=== PATIENT | female | born 1945 | race Caucasian/White ===

== ENCOUNTER 2018-04-27 13:26 | Observation (INO) ==
[2018-04-27] MEDS ORDERED: Morphine Inj 4 MG/ML Vial IV.PUSH ONE (13:52)
--- NOTE | 2018-04-27 13:56 | ED ---
HPI General Chief complaint: Abdominal Pain Stated complaint: Rib Pain Time Seen by Provider: 04/27/18 13:52 History of Present Illness HPI narrative: 73-year-old female presents via EMS for evaluation of rib injury. She reports that 5 days ago she was bit by a dog in the right upper arm and she fell and twisted her right knee in the process. She was seen at the [facility] and 4 days ago started on doxycycline. X-ray imaging of the right knee was obtained as an outpatient and reportedly she has a proximal tibia fracture. She was in the process of getting an outpatient CT and orthopedic follow-up and crutches scheduled. In fact she had an appointment today for outpatient CT however yesterday her son was helping her get into the shower and he wrapped his arms around her body in order to move her and she felt a crunching pain on left side of her rib cage. Symptoms worsened today and this is what prompted evaluation. Pain is sharp, inferior to the left breast, worse with movement and inspiration. She reports one episode of blood-tinged sputum while coughing as well. She denies abdominal pain, nausea or vomiting, neck pain or back pain , headache. She takes aspirin daily, she is not on any other blood thinning medications. Symptoms are moderate. No other complaints. Related Data Home Medications Medication Instructions Recorded Confirmed acetaminophen [Tylenol] 650 mg PO TID PRN 04/27/18 04/27/18 albuterol sulfate 2 - 4 puff INHALATION Q6H PRN 04/27/18 04/27/18 alum-mag hydroxide-simeth 10 ml PO DAILY PRN 04/27/18 04/27/18 budesonide-formoterol [Symbicort] 2 puff INHALATION Q12H 04/27/18 04/27/18 bupropion HCl 100 mg PO DAILY 04/27/18 04/27/18 citalopram 20 mg PO HS 04/27/18 04/27/18 diclofenac sodium 4 g TOPICAL TID PRN 04/27/18 04/27/18 gabapentin 400 mg PO TID 04/27/18 04/27/18 guaifenesin 200 mg PO QID PRN 04/27/18 04/27/18 ipratropium-albuterol 3 ml INHALATION QID PRN 04/27/18 04/27/18 ketoconazole 1 applic TOPICAL BID 04/27/18 04/27/18 levothyroxine 25 mcg PO DAILY 04/27/18 04/27/18 lidocaine-prilocaine 1 applicatio TOPICAL TID PRN 04/27/18 04/27/18 omeprazole 20 mg PO DAILY 04/27/18 04/27/18 tiotropium bromide [Spiriva with 1 cap INHALATION DAILY 04/27/18 04/27/18 HandiHaler] ursodiol 600 mg PO BID 04/27/18 04/27/18 Allergies Allergy/AdvReac Type Severity Reaction Status Date / Time cephalexin [From Keflex] Allergy Intermediate Itching Verified 04/27/18 13:42 erythromycin base Allergy Intermediate Hives Verified 04/27/18 13:42 [From Ilosone] Iodinated Contrast- Oral and Allergy Intermediate Hives Verified 04/27/18 13:42 IV Dye midazolam [From Versed] Allergy Intermediate Itching Verified 04/27/18 13:42 Penicillins Allergy Intermediate Respiratory Verified 04/27/18 13:42 Failure Sulfa (Sulfonamide Allergy Intermediate Hives Verified 04/27/18 13:42 Antibiotics) [facility] Medical History Medical History Asthma (Acute) Biliary cirrhosis (Acute) COPD (chronic obstructive pulmonary disease) (Acute) History of hysterectomy (Acute) Hypothyroidism (Acute) Surgical History Surgical History History of abdominal surgery (Acute) History of hip replacement (Acute) Social History Social History Substance History: No History of Abuse Second Hand Smoke Exposure: No Smoking Status: Former smoker Tobacco Type: Cigarettes How Often Do You Have a Drink Containing Alcohol: Never Recent Travel in [facility] within the Last 8 Weeks: No Recent Out of Country Travel within the Last 8 Weeks: No Exam Narrative Exam Narrative: GENERAL: Pleasant well-developed well-nourished female who appears uncomfortable on initial examination. SKIN: Warm and dry. Superficial dog bite on the posterior proximal right arm with some surrounding ecchymosis. No erythema HEAD: Atraumatic. Normocephalic. EYES: Pupils equal and round. No scleral icterus. No injection or drainage. ENT: No nasal bleeding or discharge. Mucous membranes pink and moist. NECK: Trachea midline. No JVD. CARDIOVASCULAR: Regular rate and rhythm. No murmur appreciated. RESPIRATORY: No accessory muscle use. Clear to auscultation. Breath sounds equal bilaterally. GASTROINTESTINAL: Abdomen soft, non-tender, nondistended. Hepatic and splenic margins not palpable. MUSCULOSKELETAL: No obvious deformities. Tender to palpation to the anterior and lateral left lower rib cage. No crepitus. No lower extremity edema. Right knee brace is in place. NEUROLOGICAL: Awake and alert. No obvious cranial nerve deficits. Motor grossly within normal limits. Normal speech. PSYCHIATRIC: Appropriate mood and affect; insight and judgment normal. Course Initial Documented Vital Signs Temperature 97.8 F 04/27/18 13:42 Pulse Rate 95 H 04/27/18 13:42 Respiratory Rate 20 04/27/18 13:42 Blood Pressure 135/70 04/27/18 13:42 Pulse Oximetry 99 04/27/18 13:42 Last Documented Vital Signs Temperature 97.8 F 04/27/18 13:42 Pulse Rate 95 H 04/27/18 13:42 Respiratory Rate 17 04/27/18 14:05 Blood Pressure 135/70 04/27/18 13:42 Pulse Oximetry 99 04/27/18 13:42 Medical Decision Making MDM Narrative Medical decision making narrative: The patient was given IV analgesics. Basic lab work was obtained. A rib x-ray was obtained revealing no acute ab normalities however the patient remains in persistent pain and therefore CT of the chest was obtained and there is no evidence of acute fracture or pneumothorax. At this point in time I discussed with the patient signed the possibility of discharge however the patient feels adamant that there is no that she will be ambulate with crutches or walker given her right knee injury and her left rib cage injury. Therefore she will be admitted for intractable pain. She was given Lidoderm patch, Percocet, incentive spirometer. Medical Screen Exam Complete: Yes Emergency Medical Condition: Yes Differential Diagnosis Differential Diagnosis: Rib fracture, contusion, pneumothorax, hemothorax Lab Data Result diagrams: 04/27/18 14:00 04/27/18 14:00 Lab Results 04/27/18 04/27/18 04/27/18 Range/Units 14:00 14:00 14:00 WBC 9.5 (4.0-11.0) th/mm3 RBC 3.72 L (4.00-5.30) mil/mm3 Hgb 12.1 (11.6-15.3) gm/dL Hct 35.3 (35.0-46.0) % MCV 94.9 (80.0-100.0) fL MCH 32.4 (27.0-34.0) pg MCHC 34.2 (32.0-36.0) % RDW 12.9 (11.6-17.2) % Plt Count 281 (150-450) th/mm3 MPV 7.6 (7.0-11.0) fL Neut % (Auto) 69.1 (16.0-70.0) % Lymph % (Auto) 17.5 (9.0-44.0) % [place] % (Auto) 9.4 H (0.0-8.0) % Eos % (Auto) 3.2 (0.0-4.0) % Baso % (Auto) 0.8 (0.0-2.0) % Neut # (Auto) 6.6 (1.8-7.7) th/mm3 Lymph # (Auto) 1.7 (1.0-4.8) th/mm3 [place] # (Auto) 0.9 (0.0-0.9) th/mm3 Eos # (Auto) 0.3 (0.0-0.4) th/mm3 Baso # (Auto) 0.1 (0.0-0.2) th/mm3 WBC Differential . Differential Comment Auto diff final PT 10.4 (9.8-11.6) sec INR 1.0 Ratio APTT 23.3 L (23.4-31.7) sec Sodium 141 (136-145) meq/L Potassium 4.5 (3.5-5.1) meq/L Chloride 106 (98-107) meq/L Carbon Dioxide 25.9 (21.0-32.0) meq/L Anion Gap 9 (5-15) meq/L BUN 20 H (7-18) mg/dL Creatinine 1.06 H (0.50-1.00) mg/dL Estimated GFR 51 L (>89) mL/min Random Glucose 171 H (74-106) mg/dL Calcium 8.4 L (8.5-10.1) mg/dL Imaging Data Radiologist's impression: Ribs X-Ray 04/27/18 13:52 CONCLUSION: 1. Healed left-sided rib fractures. 2. No acute displaced rib fracture or pneumothorax. Chest CT 04/27/18 15:19 CONCLUSION: Negative CT Chest non contrast. Discharge Plan Physicians Team ED Provider: Javi Pa ED Midlevel Provider: Mikey Howard Primary Care Provider: [facility] /Orders / Referrals /Forms Prescriptions: No Action acetaminophen [Tylenol] 325 mg Tablet 650 mg PO TID PRN (Reason: Pain and/or fever) RF: 0 ipratropium-albuterol 0.5 mg-3 mg(2.5 mg base)/3 mL Solution For Nebulization 3 ml INHALATION QID PRN (Reason: Shortness Of Breath) RF: 0 citalopram 40 mg Tablet 20 mg PO HS RF: 0 lidocaine-prilocaine 2.5-2.5 % Cream 1 applicatio Topical TID PRN (Reason: Pain) RF: 0 levothyroxine 25 mcg Tablet 25 mcg PO DAILY RF: 0 bupropion HCl 100 mg Tablet 100 mg PO DAILY RF: 0 ursodiol 300 mg Capsule 600 mg PO BID RF: 0 omeprazole 20 mg Capsule,Delayed Release(Dr/Ec) 20 mg PO DAILY RF: 0 albuterol sulfate 90 mcg/actuation Hfa Aerosol Inhaler 2 - 4 puff INHALATION Q6H PRN (Reason: Shortness Of Breath) RF: 0 ketoconazole 2 % Cream 1 applic TOPICAL BID RF: 0 alum-mag hydroxide-simeth 400-400-40 mg/5 mL Suspension 10 ml PO DAILY PRN (Reason: Indigestion) RF: 0 tiotropium bromide [Spiriva with HandiHaler] 18 mcg Capsule, W/Inhalation Device 1 cap INHALATION DAILY RF: 0 budesonide-formoterol [Symbicort] 160-4.5 mcg/actuation Hfa Aerosol Inhaler 2 puff INHALATION Q12H RF: 0 diclofenac sodium 1 % Gel 4 g TOPICAL TID PRN (Reason: Pain) RF: 0 gabapentin 400 mg Capsule 400 mg PO TID RF: 0 guaifenesin 100 mg/5 mL Liquid 200 mg PO QID PRN (Reason: Thin Mucous) RF: 0 Status ED Status: With Doctor
[2018-04-27 14:23] LABS: Baso # (Auto) 0.1 th/mm3 (0.0-0.2); Baso % (Auto) 0.8 % (0.0-2.0); Eos # (Auto) 0.3 th/mm3 (0.0-0.4); Eos % (Auto) 3.2 % (0.0-4.0); Hematocrit 35.3 % (35.0-46.0); Hemoglobin 12.1 gm/dL (11.6-15.3); Lymph # (Auto) 1.7 th/mm3 (1.0-4.8); Lymph % (Auto) 17.5 % (9.0-44.0); Mean Corpuscular HGB Conc 34.2 % (32.0-36.0); Mean Corpuscular Hemoglobin 32.4 pg (27.0-34.0); Mean Corpuscular Volume 94.9 fL (80.0-100.0); Mean Platelet Volume 7.6 fL (7.0-11.0); Mono # (Auto) 0.9 th/mm3 (0.0-0.9); Mono % (Auto) 9.4 % (0.0-8.0); Neut # (Auto) 6.6 th/mm3 (1.8-7.7); Neut % (Auto) 69.1 % (16.0-70.0); Platelet Count 281 th/mm3 (150-450); Red Blood Count 3.72 mil/mm3 (4.00-5.30); Red Cell Distribution Width 12.9 % (11.6-17.2); White Blood Count 9.5 th/mm3 (4.0-11.0)
[2018-04-27 14:39] LABS: Activated Partial Thrombo Time 23.3 sec (23.4-31.7); Calcium 8.4 mg/dL (8.5-10.1); Carbon Dioxide 25.9 meq/L (21.0-32.0); Potassium 4.5 meq/L (3.5-5.1); Prothrombin Time 10.4 sec (9.8-11.6)
--- NOTE | 2018-04-27 15:18 | XR ---
EXAM DATE: 04/27/2018 3:14 PM EST AGE/SEX: 73 years / Female INDICATIONS: Rib pain. CLINICAL DATA: This is the patient's initial encounter. Patient reports that signs and symptoms have been present for 4 - 6 days and indicates a pain score of 10/10. MEDICAL/SURGICAL HISTORY: . Patient was attacked by a pit bull Monday and suffered facial and b ites to her arm, a broken tibia and bruised tailbone and progressive rib pain. Patient history of [place] PD and osteoporosis. None. COMPARISON: . FINDINGS: There is no evidence of displaced fracture. Healed left-sided rib fractures. No destructive lesions o r areas of periosteal thickening are seen. Expiratory view of the chest is negative for pneumothorax . The mediastinal structures are midline. CONCLUSION: 1. Healed left-sided rib fractures. 2. No acute displaced rib fracture or pneumothorax. Electronically signed by: Bi Cuevas MD 04/27/2018 3:17 PM EST
--- NOTE | 2018-04-27 16:10 | CT ---
EXAM DATE: 04/27/2018 3:58 PM EST AGE/SEX: 73 years / Female INDICATIONS: Left side chest and rib pain after injury CLINICAL DATA: This is the patient's initial encounter. Patient reports that signs and symptoms have been present for 1 day and indicates a pain score of 6/10. MEDICAL/SURGICAL HISTORY: Chronic obstructive pulmonary disease. Cirrhosis. Hysterectomy. Abdomina l surgery, Hip replacement RADIATION DOSE: 7.60 CTDI (mGy) COMPARISON: No prior exams available for comparison. TECHNIQUE: Multiple contiguous axial images were obtained through the chest without contrast. Image s were obtained in suspended respiration using multiple row detector helical technique. Using automa jie exposure control and adjustment of the mA and/or kV according to patient size, radiation dose was kept as low as reasonably achievable to obtain optimal diagnostic quality images. DICOM format imag e data is available electronically for review and comparison. FINDINGS: Lungs: The lungs are symmetrically aerated. No infiltrates or nodular densities are seen. Mediastinum: There is good visualization of the great vessels of the middle mediastinum. No evidenc e of mediastinal or hilar adenopathy/mass. Pleurae: No evidence of focal thickening or pleural effusion. Axillae: Unremarkable. Bony Structures: Unremarkable. Miscellaneous: The examination was extended to include the upper abdomen, and both adrenal glands ar e normal in size and configuration. CONCLUSION: Negative CT Chest non contrast. Electronically signed by: Ollie Young MD 04/27/2018 4:08 PM EST
[2018-04-27] MEDS ORDERED: Lidocaine 5% Patch T-DERMAL ONE (16:38)
[2018-04-27] MEDS ORDERED: Bisacodyl 10 MG Supp RECTAL PRN (17:26)
[2018-04-27] MEDS ORDERED: Acetaminophen 325 MG Tablet PO PRN (17:26)
--- NOTE | 2018-04-27 17:58 | P.HP ---
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 Patient was seen at the [facility] and was started on doxycycline. X-ray of the right knee revealed a proximal tibia fracture. Patient was in the process of getting outpatient CT and orthopedic follow-up. Yesterday her son grabbed her around the chest to help move her in the bathroom when she felt a crunching followed by sharp pain over the left side of her rib cage just below her breast. Today she was going for the outpatient CT she pulled herself into the car and further injured her left side. Patient describes the pain is sharp stabbing spasm-like pain just below the left breast that is worse with movement and inspiration. She also had one episode of blood-tinged sputum with coughing while in the ED. Patient denies any fever or chills. She denies any anterior chest pain shortness of breath. She denies any nausea, vomiting or abdominal pain. Additionally she does complain of right knee pain and inability to bear weight on the right leg. In the ED, x-ray reveals healed left-sided rib fractures with no evidence of acute fracture. Follow-up chest CT is negative. Review of Systems All other systems reviewed negative except as stated in HPI PMFSH - History History Provided By: Patient - Medical History Medical History: Medical History (Last Reviewed 04/27/18 @ 17:42 by Sabrina Bell) Asthma Biliary cirrhosis CAD (coronary artery disease) COPD (chronic obstructive pulmonary disease) GERD (gastroesophageal reflux disease) History of CVA (cerebrovascular accident) History of MS (myocardial infarction) History of hysterectomy Hypothyroidism Osteoporosis - Surgical History Surgical History: Surgical History (Last Reviewed 04/27/18 @ 17:42 by Sabrina Bell) History of abdominal surgery History of hip replacement - Family History Family History: Family History (Last Updated 04/27/18 @ 17:43 by Sabrina Bell) Other Coronary artery disease - Social History I have reviewed the patient's Social History: Yes - Tobacco History Second Hand Smoke Exposure: No Tobacco Use In Past 30 Days: No Smoking Status: Former smoker Tobacco Type: Cigarettes - Alcohol History How Often Do You Have a Drink Containing Alcohol: Never - Substance Use History Substance History: No History of Abuse - Travel History Recent Travel in the [place] Within the Last 8 Weeks: No Recent Travel Out of the Country Within the Last 8 Weeks: No - Immunization History Tetanus Immunization: <5 Years Medications and Allergies Active Medications: Active Medications Acetaminophen (Tylenol) 650 mg PO Q4H PRN PRN Reason: Temp > 100.4 Hydrocodone Bitart/Acetaminophen (Pax 7.5/325) 1 tab PO Q6H PRN PRN Reason: PAIN SCALE 1 TO 10 Al Hydroxide/Mg Hydroxide (Milk Of Magnesia Liq) 30 ml PO Q12H PRN PRN Reason: Mild Constipation Bisacodyl (Dulcolax Supp) 10 mg RECTAL DAILY PRN PRN Reason: SEVERE CONSITIPATION Cyclobenzaprine HCl (Flexeril) 5 mg PO Q8H PRN PRN Reason: MUSCLE SPASM Lactulose (Lactulose Liq) 30 ml PO DAILY PRN PRN Reason: SEVERE CONSITIPATION Morphine Sulfate (Morphine Inj) 2 mg IV.PUSH Q3H PRN PRN Reason: BREAKTHROUGH PAIN Ondansetron HCl (Zofran Inj) 4 mg IV.PUSH Q6H PRN PRN Reason: NAUSEA OR VOMITING Patch Removal (Remove Old Patch) 1 each T-DERMAL HS LORI Senna/Docusate Sodium (Jennifer-Colace) 1 tab PO BID LORI Sennosides (Senokot) 17.2 mg PO Q12H PRN PRN Reason: Moderate Constipation Allergies Allergy/AdvReac Type Severity Reaction Status Date / Time cephalexin [From Keflex] Allergy Intermediate Itching Verified 04/27/18 13:42 erythromycin base Allergy Intermediate Hives Verified 04/27/18 13:42 [From Ilosone] Iodinated Contrast- Oral and Allergy Intermediate Hives Verified 04/27/18 13:42 IV Dye midazolam [From Versed] Allergy Intermediate Itching Verified 04/27/18 13:42 Penicillins Allergy Intermediate Respiratory Verified 04/27/18 13:42 Failure Sulfa (Sulfonamide Allergy Intermediate Hives Verified 04/27/18 13:42 Antibiotics) Home Medications Medication Instructions Recorded Confirmed Type acetaminophen [Tylenol] 650 mg PO TID PRN 04/27/18 04/27/18 History albuterol sulfate 2 - 4 puff INHALATION Q6H PRN 04/27/18 04/27/18 History alum-mag hydroxide-simeth 10 ml PO DAILY PRN 04/27/18 04/27/18 History budesonide-formoterol [Symbicort] 2 puff INHALATION Q12H 04/27/18 04/27/18 History bupropion HCl 100 mg PO DAILY 04/27/18 04/27/18 History citalopram 20 mg PO HS 04/27/18 04/27/18 History diclofenac sodium 4 g TOPICAL TID PRN 04/27/18 04/27/18 History gabapentin 400 mg PO TID 04/27/18 04/27/18 History guaifenesin 200 mg PO QID PRN 04/27/18 04/27/18 History ipratropium-albuterol 3 ml INHALATION QID PRN 04/27/18 04/27/18 History ketoconazole 1 applic TOPICAL BID 04/27/18 04/27/18 History levothyroxine 25 mcg PO DAILY 04/27/18 04/27/18 History lidocaine-prilocaine 1 applicatio TOPICAL TID PRN 04/27/18 04/27/18 History omeprazole 20 mg PO DAILY 04/27/18 04/27/18 History tiotropium bromide [Spiriva with 1 cap INHALATION DAILY 04/27/18 04/27/18 History HandiHaler] ursodiol 600 mg PO BID 04/27/18 04/27/18 History Exam Vital signs: Vital Signs 04/27/18 13:42 04/27/18 14:05 04/27/18 17:09 Temperature 97.8 F Pulse Rate 95 H 87 Respiratory Rate 20 17 24 Blood Pressure 135/70 167/79 H Pulse Oximetry 99 96 Intake & Output 04/26/18 04/27/18 04/27/18 18:59 06:59 18:59 Weight 160 kg Narrative: GENERAL: WDWN elderly female patient, in obvious discomfort from left- sided rib pain. Awake and alert. Son is at the bedside. SKIN: Warm and dry. +small healing bite gertrudis over right side of nose. + healing bite gertrudis with surrounding ecchymosis posterior aspect of the right arm above the elbow. HEAD: Atraumatic. Normocephalic. EYES: Pupils equal and round. No scleral icterus. No injection or drainage. ENT: No nasal bleeding or discharge. Mucous membranes pink and moist. NECK: Trachea midline. CARDIOVASCULAR: Regular rate and rhythm. RESPIRATORY: No accessory muscle use. Breath sounds equal bilaterally. Mild wheezing noted. GASTROINTESTINAL: Abdomen soft, non-tender, nondistended. Hepatic and splenic margins not palpable. MUSCULOSKELETAL: Extremities without clubbing, cyanosis, or edema. + Exquisite tenderness to palpation over left rib just below the breast. Right knee in brace. +diffuse tenderness to palpation over right knee. NEUROLOGICAL: Awake and alert. No obvious cranial nerve deficits. Motor grossly within normal limits. Five out of 5 muscle strength in the arms and legs. Normal speech. PSYCHIATRIC: Appropriate mood and affect; insight and judgment normal. Results - Labs CBC & Chem 7: 04/27/18 14:00 04/27/18 14:00 Labs: Laboratory Results - last 24 hr 04/27/18 04/27/18 04/27/18 14:00 14:00 14:00 WBC 9.5 RBC 3.72 L Hgb 12.1 Hct 35.3 MCV 94.9 MCH 32.4 MCHC 34.2 RDW 12.9 Plt Count 281 MPV 7.6 Neut % (Auto) 69.1 Lymph % (Auto) 17.5 [place] % (Auto) 9.4 H Eos % (Auto) 3.2 Baso % (Auto) 0.8 Neut # (Auto) 6.6 Lymph # (Auto) 1.7 [place] # (Auto) 0.9 Eos # (Auto) 0.3 Baso # (Auto) 0.1 WBC Differential . Differential Comment Auto diff final PT 10.4 INR 1.0 APTT 23.3 L Sodium 141 Potassium 4.5 Chloride 106 Carbon Dioxide 25.9 Anion Gap 9 BUN 20 H Creatinine 1.06 H Estimated GFR 51 L Random Glucose 171 H Calcium 8.4 L - Imaging Impressions Ribs X-Ray 04/27/18 13:52 CONCLUSION: 1. Healed left-sided rib fractures. 2. No acute displaced rib fracture or pneumothorax. Chest CT 04/27/18 15:19 CONCLUSION: Negative CT Chest non contrast. Caprini VTE Risk Assessment Caprini VTE Risk Assessment: Moderate/High Risk (score >= 2) Caprini Risk Assessment Model: Point Value = 1 Point Value = 2 Point Value = 3 Point Value = 5 Age 41-60 Minor surgery BMI > 25 kg/m2 Swollen legs Varicose veins or History of unexplained or recurrent spontaneous Oral contraceptives or hormone replacement Sepsis (< 1 month) Serious lung disease, including pneumonia (< 1 month) Abnormal pulmonary function Acute myocardial infarction Congestive heart failure (< 1 month) History of inflammatory bowel disease Medical patient at bed rest Age 61-74 Arthroscopic surgery Major open surgery (> 45 min) Laparoscopic surgery (> 45 min) Malignancy Confined to bed (> 72 hours) Immobilizing plaster cast Central venous access Age >= 75 History of VTE Family history of VTE Factor V Leiden Prothrombin 54063H Lupus anticoagulant Anticardiolipin antibodies Elevated serum homocysteine Heparin-induced thrombocytopenia Other congenital or acquired thrombophilia Stroke (< 1 month) Elective arthroplasty Hip, pelvis, or leg fracture Acute spinal cord injury (< 1 month) Prophylaxis Regimen: Total Risk Factor Score Risk Level Prophylaxis Regimen 0-1 Low Early ambulation 2 Moderate Order ONE of the following: *Sequential Compression Device (SCD) *Heparin 5000 units SQ BID 3-4 Higher Order ONE of the following medications: *Heparin 5000 units SQ TID *Enoxaparin/Lovenox 40 mg SQ daily (WT < 150 kg, CrCl > 30 mL/min) *Enoxaparin/Lovenox 30 mg SQ daily (WT < 150 kg, CrCl > 10-29 mL/min) *Enoxaparin/Lovenox 30 mg SQ BID (WT < 150 kg, CrCl > 30 mL/min) AND/OR *Sequential Compression Device (SCD) 5 or more Highest Order ONE of the following medications: *Heparin 5000 units SQ TID (Preferred with Epidurals) *Enoxaparin/Lovenox 40 mg SQ daily (WT < 150 kg, CrCl > 30 mL/min) *Enoxaparin/Lovenox 30 mg SQ daily (WT < 150 kg, CrCl > 10-29 mL/min) *Enoxaparin/Lovenox 30 mg SQ BID (WT < 150 kg, CrCl > 30 mL/min) AND *Sequential Compression Device (SCD) Assessment and Plan - Plan Intractable left sided rib pain, suspected muscle spasm No evidence of acute fracture on imaging -pain management with bowel regimen -Trial Lidoderm patch -Flexeril as needed -Monitor for improvement Episode of hemoptysis -Consult pulmonary medicine, appreciate assistance Right knee proximal tibia fracture per report -Obtain x-rays of the right knee -Consider orthopedic consultation -PT eval/tx Recent dog bite this past Monday [facility] No evidence of infection -Continue on doxycycline 100 mg twice daily (patient has penicillin allergy) -monitor ROSALIND on possible CKD No baseline labs for comparison Creatinine 1.06 -Avoid nephrotoxic agents -Repeat BMP in a.m. Liver cirrhosis secondary to Fosamax use -Avoid hepatotoxic agents -Monitor COPD, mild wheezing noted on exam -Scheduled DuoNeb -Supplemental oxygen -Monitor respiratory status CAD, history of remote MS x 3 Patient has no cardiac complaints -We will resume patient's home medications once med rec completed History of CVA x2, remotely Patient denies any residual weakness -Stable DVT prophylaxis -bilateral SCD/RAFIQ hose Code Status: FULL
[2018-04-27] MEDS ORDERED: Sod Chloride 0.9% Inj 1,000 ML IV.CONT SCH (18:00)
--- NOTE | 2018-04-27 18:14 | XR ---
EXAM DATE: 04/27/2018 6:08 PM EST AGE/SEX: 73 years / Female INDICATIONS: Right knee pain after twist and fall. CLINICAL DATA: This is the patient's initial encounter. Patient reports that signs and symptoms have been present for 4 - 6 days and indicates a pain score of 5/10. MEDICAL/SURGICAL HISTORY: None. None. COMPARISON: No prior exams available for comparison. FINDINGS: There is a questionable slightly downsloping but otherwise essentially nondisplaced fracture of the l ateral tibial plateau. Otherwise, bones of the right knee are intact. No subluxations. There is mild to moderate tricompartment osteoarthritis and a small joint effusion. CONCLUSION: Questionable nondisplaced lateral tibial plateau fracture. Mild to moderate osteoarthritis. Electronically signed by: Alonso Murray MD 04/27/2018 6:13 PM EST
[2018-04-27] MEDS: Senna/Docusate Sodium 8.6/50 MG Tablet PO SCH (20:47)
--- NOTE | 2018-04-27 22:00 | ECG ---
Date Performed: 04/27/2018 Time Performed: 13:48:20 PTAGE: 73 years EKG: Sinus rhythm NORMAL ECG NO PREVIOUS TRACING DOCTOR: Arias Salazar Interpretating Date/Time 04/27/2018 21:58:20
[2018-04-28] MEDS: Morphine Sulfate Inj 2 MG/ML Vial IV.PUSH PRN ×5 (01:01→23:54)
[2018-04-28 07:17] LABS: Baso # (Auto) 0.1 th/mm3 (0.0-0.2); Eos # (Auto) 0.3 th/mm3 (0.0-0.4); Hemoglobin 11.7 gm/dL (11.6-15.3); Lymph # (Auto) 2.6 th/mm3 (1.0-4.8); Lymph % (Auto) 36.8 % (9.0-44.0); Mean Corpuscular HGB Conc 33.5 % (32.0-36.0); Mean Corpuscular Hemoglobin 32.4 pg (27.0-34.0); Mean Corpuscular Volume 96.6 fL (80.0-100.0); Mean Platelet Volume 7.5 fL (7.0-11.0); Mono % (Auto) 13.9 % (0.0-8.0); Neut % (Auto) 43.3 % (16.0-70.0); Platelet Count 257 th/mm3 (150-450); Red Blood Count 3.62 mil/mm3 (4.00-5.30)
[2018-04-28 07:27] LABS: Alanine Aminotransferase 27 U/L (10-53); Albumin 2.8 g/dL (3.4-5.0); Anion Gap 8 meq/L (5-15); Aspartate Aminotransferase 21 U/L (15-37); Blood Urea Nitrogen 22 mg/dL (7-18); Calcium 8.4 mg/dL (8.5-10.1); Carbon Dioxide 27.2 meq/L (21.0-32.0); Chloride 105 meq/L (98-107); Glomerular Filtration Rate 60 mL/min (>89); Glucose,Random 91 mg/dL (74-106); Potassium 4.5 meq/L (3.5-5.1); Sodium 140 meq/L (136-145)
[2018-04-28 07:30] LABS: Alkaline Phosphatase 113 U/L (45-117); Total Protein 6.5 g/dL (6.4-8.2)
[2018-04-28] MEDS: Senna/Docusate Sodium 8.6/50 MG Tablet PO SCH ×2 (08:53→20:55)
[2018-04-28] MEDS: Lidocaine 5% Patch T-DERMAL SCH (08:53)
--- NOTE | 2018-04-28 09:04 | P.PNIM ---
Subjective Interval history: still having pain in left side of chest on breathing. Pain is sharp and feels like a 'pop' when breathing. breathing improved, no wheezing currently. unable to bear weight on right leg. Physical Exam Vital signs: Last Vital Signs Temp 97.7 F 04/28/18 00:00 Pulse 75 04/28/18 07:38 Resp 18 04/28/18 07:38 BP 126/73 04/28/18 00:00 Pulse Ox 93 L 04/28/18 07:38 Intake & Output 04/26/18 04/27/18 04/28/18 04/29/18 06:59 06:59 06:59 06:59 Weight 160 kg Narrative: GENERAL:uncomfortable due to left-sided rib pain. Awake and alert. SKIN: Warm and dry. +small healing bite gertrudis over right side of nose. + healing bite gertrudis with surrounding ecchymosis posterior aspect of the right arm above the elbow. HEAD: Atraumatic. Normocephalic. EYES: Pupils equal and round. No scleral icterus. No injection or drainage. ENT: No nasal bleeding or discharge. Mucous membranes pink and moist. NECK:no JVD CARDIOVASCULAR: Regular rate and rhythm. S1S2 heard, no murmurs. RESPIRATORY: No accessory muscle use. Breath sounds equal bilaterally. no rales or wheezes. GASTROINTESTINAL: Abdomen soft, non-tender, nondistended. no masses or organomegaly. MUSCULOSKELETAL: Extremities without clubbing, cyanosis, or edema. + Exquisite tenderness to palpation over left rib just below the breast. Right knee in brace. +diffuse tenderness to palpation over right knee. NEUROLOGICAL: Awake and alert. No obvious cranial nerve deficits. Motor grossly within normal limits. Five out of 5 muscle strength in the arms and legs. Normal speech. PSYCHIATRIC: Appropriate mood and affect; insight and judgment normal. Results Labs CBC & Chem 7: 04/28/18 05:56 04/28/18 05:56 Imaging Imaging: Impressions Knee X-Ray 04/27/18 00:00 CONCLUSION: Questionable nondisplaced lateral tibial plateau fracture. Mild to moderate osteoarthritis. Ribs X-Ray 04/27/18 13:52 CONCLUSION: 1. Healed left-sided rib fractures. 2. No acute displaced rib fracture or pneumothorax. Chest CT 04/27/18 15:19 CONCLUSION: Negative CT Chest non contrast. Assessment and Plan Plan Acute problems: Intractable left sided rib pain, suspected muscle spasm No evidence of acute fracture on imaging -pain management with bowel regimen, Lidoderm patch, Flexeril as needed Episode of hemoptysis - pulmonary medicine consult placed overnight, will follow recs. Right knee proximal tibia fracture per report -x-rays of the right knee--questionable fracture of tibial plateau--obtain CT RLE for further evaluation, if # present, then will consult orth for further mx currently has a knee brace. NWB RLE for now. -PT eval/tx Recent pit bull dog bite this past Monday--dog apparently was up to date with vaccination according to patient's son. No evidence of infection. Patient has been on doxycycline 100 mg twice daily ( patient has penicillin allergy) [facility] same. ROSALIND on possible CKD No baseline labs for comparison Creatinine 1.06--->0.91. cont gentle hydration, monitor closely. -Avoid nephrotoxic agents Stable chronic conditions: Liver cirrhosis secondary to Fosamax use -Avoid hepatotoxic agents -Monitor COPD, mild wheezing noted on exam -Scheduled DuoNeb -Supplemental oxygen -Monitor respiratory status CAD, history of remote CT x 3 Patient has no cardiac complaints -cont patient's home medications once med rec completed History of CVA x2, remotely Patient denies any residual weakness DVT prophylaxis -bilateral SCD/RAFIQ hose Progress Note: Quality VTE Deep Vein Thrombosis/Pulmonary Embolism Present on Admission: No
--- NOTE | 2018-04-28 11:35 | CT ---
EXAM DATE: 04/28/2018 11:27 AM EST AGE/SEX: 73 years / Female INDICATIONS: Abnormal xray. CLINICAL DATA: This is the patient's initial encounter. Patient reports that signs and symptoms have been present for 1 day and indicates a pain score of 7/10. MEDICAL/SURGICAL HISTORY: Hypothyroidism. Osteoporosis. Stroke. Hysterectomy. RADIATION DOSE: 7.29 CTDI (mGy) COMPARISON: [facility], KNEE COMPLETE RIGHT 4V, 04/27/2018. . TECHNIQUE: Multiple contiguous axial images were acquired using a multirow detector CT scanner witho ut contrast. Multiplanar reconstruction was performed in the sagittal and coronal planes. Using aut omated exposure control and adjustment of the mA and/or kV according to patient size, radiation dose was kept as low as reasonably achievable to obtain optimal diagnostic quality images. DICOM format i mage data is available electronically for review and comparison. FINDINGS: There is a knee joint effusion identified. There is no evidence for lipohemarthrosis. There is very s light cortical step-off of the lateral tibial plateau with a lucency seen. This corresponds to a nond isplaced fracture of the lateral tibial plateau, corresponding to the plain radiographic findings. Th ere is spurring of the tibial spines and moderate narrowing of the medial tibiofemoral compartment wi th subchondral sclerosis and marginal osteophyte formation. CONCLUSION: 1. Lateral tibial plateau fracture. 2. Osteoarthritis. Electronically signed by: Judson Zaman MD 04/28/2018 11:34 AM EST
--- NOTE | 2018-04-28 16:41 | ECG ---
Date Performed: 04/28/2018 Time Performed: 14:00:26 PTAGE: 73 years EKG: Sinus rhythm NORMAL ECG No significant change from prior electrocardiogram. PREVIOUS TRACING : 04/27/2018 13.48 DOCTOR: Arias Salazar Interpretating Date/Time 04/28/2018 16:41:06
--- NOTE | 2018-04-28 16:53 | P.CONOP ---
[facility] Orthopedics Consult Note - [facility] Consult date: 04/28/18 Consult reason: fracture Chief complaint: intractable Pain, rib contusion, Narrative: 73-year-old female with a past medical history significant for coronary artery disease status post PR x3 in the remote past, history of CVA x2 in the remote past, COPD on supplemental oxygen at home, history of liver cirrhosis secondary to Fosamax use, hypothyroidism and GERD who was bit by her neighbors dog on Monday causing her to fall and twist on her right knee. Patient was seen at the [facility] and was started on doxycycline. X-ray of the right knee revealed a proximal tibia fracture. Patient was in the process of getting outpatient CT and orthopedic follow-up. Yesterday her son grabbed her around the chest to help move her in the bathroom when she felt a crunching followed by sharp pain over the left side of her rib cage just below her breast. Today she was going for the outpatient CT she pulled herself into the car and further injured her left side. She also had one episode of blood-tinged sputum with coughing while in the ED. Patient denies any fever or chills. She denies any nausea, vomiting or abdominal pain. Additionally she does complain of right knee pain and inability to bear weight on the right leg. Review of Systems Denies fevers, chills, nausea, vomiting. Denies chest pain, cough, shortness of breath. Does complain of some left-sided rib discomfort. Denies abdominal pain or change in urination. Denies back pain, weakness, numbness or tingling. Denies dizziness, blurry vision or throat pain. Reports right knee pain PMFSH - History History Provided By: Patient - Medical History Medical History: Medical History (Last Reviewed 04/28/18 @ 10:03 by Tabitha Matias) Asthma Biliary cirrhosis CAD (coronary artery disease) COPD (chronic obstructive pulmonary disease) GERD (gastroesophageal reflux disease) History of CVA (cerebrovascular accident) History of PR (myocardial infarction) History of hysterectomy Hypothyroidism Osteoporosis - Surgical History Surgical History: Surgical History (Last Reviewed 04/28/18 @ 10:03 by Tabitha Matias) History of abdominal surgery History of hip replacement - Family History Family History: Family History (Last Updated 04/27/18 @ 17:43 by Sabrina Bell) Other Coronary artery disease - Tobacco History Second Hand Smoke Exposure: No Tobacco Use In Past 30 Days: No Smoking Status: Former smoker Tobacco Type: Cigarettes - Alcohol History How Often Do You Have a Drink Containing Alcohol: Never - Substance Use History Substance History: No History of Abuse - Travel History Recent Travel in the [place] Within the Last 8 Weeks: No Recent Travel Out of the Country Within the Last 8 Weeks: No - Immunization History Tetanus Immunization: <5 Years Medications and Allergies Active Medications: Active Medications Acetaminophen (Tylenol) 650 mg PO Q4H PRN PRN Reason: Temp > 100.4 Hydrocodone Bitart/Acetaminophen ([place] 7.5/325) 1 tab PO Q6H PRN PRN Reason: PAIN SCALE 1 TO 10 Last Admin: 04/27/18 21:04 Dose: 1 tab Al Hydroxide/Mg Hydroxide (Milk Of Magnesia Liq) 30 ml PO Q12H PRN PRN Reason: Mild Constipation Albuterol (Duoneb Neb (Formerly [facility])) 1 ampul NEB Q6HR WHILE AWAKE NEB [facility] Last Admin: 04/28/18 14:23 Dose: 1 ampul Bisacodyl (Dulcolax Supp) 10 mg RECTAL DAILY PRN PRN Reason: SEVERE CONSITIPATION Cyclobenzaprine HCl (Flexeril) 5 mg PO Q8H PRN PRN Reason: MUSCLE SPASM Doxycycline Hyclate (Vibramycin) 100 mg PO Q12HR [facility] Last Admin: 04/28/18 08:53 Dose: 100 mg Sodium Chloride (Ns Inj) 1,000 mls @ 42 mls/hr IV.CONT .[id number] [facility] Stop: 04/28/18 17:48 Last Admin: 04/27/18 19:03 Dose: 42 mls/hr Lactulose (Lactulose Liq) 30 ml PO DAILY PRN PRN Reason: SEVERE CONSITIPATION Lidocaine HCl (Lidoderm 5% Patch.12 Hr) 1 patch T-DERMAL DAILY [facility] Last Admin: 04/28/18 08:53 Dose: 1 patch Morphine Sulfate (Morphine Inj) 2 mg IV.PUSH Q3H PRN PRN Reason: BREAKTHROUGH PAIN Last Admin: 04/28/18 08:02 Dose: 2 mg Ondansetron HCl (Zofran Inj) 4 mg IV.PUSH Q6H PRN PRN Reason: NAUSEA OR VOMITING Last Admin: 04/28/18 10:20 Dose: 4 mg Patch Removal (Remove Old Patch) 1 each T-DERMAL HS [facility] Last Admin: 04/27/18 20:49 Dose: 1 each Patch Removal (Remove Old Patch) 1 each T-DERMAL HS [facility] Last Admin: 04/27/18 20:49 Dose: 1 each Senna/Docusate Sodium (Jennifer-Colace) 1 tab PO BID [facility] Last Admin: 04/28/18 08:53 Dose: 1 tab Sennosides (Senokot) 17.2 mg PO Q12H PRN PRN Reason: Moderate Constipation Allergies Allergy/AdvReac Type Severity Reaction Status Date / Time cephalexin [From Keflex] Allergy Intermediate Itching Verified 04/27/18 13:42 erythromycin base Allergy Intermediate Hives Verified 04/27/18 13:42 [From Ilosone] Iodinated Contrast- Oral and Allergy Intermediate Hives Verified 04/27/18 13:42 IV Dye midazolam [From Versed] Allergy Intermediate Itching Verified 04/27/18 13:42 Penicillins Allergy Intermediate Respiratory Verified 04/27/18 13:42 Failure Sulfa (Sulfonamide Allergy Intermediate Hives Verified 04/27/18 13:42 Antibiotics) levofloxacin [From Levaquin] Allergy Hallucinati Verified 04/27/18 18:22 ons Home Medications Medication Instructions Recorded Confirmed Type acetaminophen [Tylenol] 650 mg PO TID PRN 04/27/18 04/27/18 History albuterol sulfate 2 - 4 puff INHALATION Q6H PRN 04/27/18 04/27/18 History alum-mag hydroxide-simeth 10 ml PO DAILY PRN 04/27/18 04/27/18 History budesonide-formoterol [Symbicort] 2 puff INHALATION Q12H 04/27/18 04/27/18 History bupropion HCl 100 mg PO DAILY 04/27/18 04/27/18 History citalopram 20 mg PO HS 04/27/18 04/27/18 History diclofenac sodium 4 g TOPICAL TID PRN 04/27/18 04/27/18 History gabapentin 400 mg PO TID 04/27/18 04/27/18 History guaifenesin 200 mg PO QID PRN 04/27/18 04/27/18 History ipratropium-albuterol 3 ml INHALATION QID PRN 04/27/18 04/27/18 History ketoconazole 1 applic TOPICAL BID 04/27/18 04/27/18 History levothyroxine 25 mcg PO DAILY 04/27/18 04/27/18 History lidocaine-prilocaine 1 applicatio TOPICAL TID PRN 04/27/18 04/27/18 History omeprazole 20 mg PO DAILY 04/27/18 04/27/18 History tiotropium bromide [Spiriva with 1 cap INHALATION DAILY 04/27/18 04/27/18 History HandiHaler] ursodiol 600 mg PO BID 04/27/18 04/27/18 History Exam Vital signs: Vital Signs 04/27/18 17:09 04/27/18 19:32 04/27/18 19:50 Temperature 98.1 F Pulse Rate 87 87 79 Respiratory Rate 24 24 18 Blood Pressure 167/79 H 129/72 Pulse Oximetry 96 98 04/27/18 20:00 04/27/18 22:37 04/27/18 23:30 Temperature 98.7 F Pulse Rate 75 71 Respiratory Rate 18 18 Blood Pressure 120/67 Pulse Oximetry 96 98 04/28/18 00:00 04/28/18 04:00 04/28/18 07:38 Temperature 97.7 F Pulse Rate 68 63 75 Respiratory Rate 18 18 Blood Pressure 126/73 Pulse Oximetry 97 93 L 04/28/18 08:00 04/28/18 08:04 04/28/18 12:00 Temperature 98.3 F 98.1 F Pulse Rate 75 77 Respiratory Rate 22 18 20 Blood Pressure 121/69 122/64 Pulse Oximetry 98 98 04/28/18 14:28 Temperature Pulse Rate 76 Respiratory Rate 18 Blood Pressure Pulse Oximetry Intake & Output 04/27/18 04/28/18 04/28/18 18:59 06:59 18:59 Weight 160 kg Other: Weight On Admission 160 kg Narrative: Awake, alert, no acute distress Normocephalic Pupils equal No JVD Moist mucous membranes Nonlabored respirations Soft nontender abdomen Regular rate Right upper extremity: No tenderness to palpation or visible deformities. Patient does have visible dog bites over arm which appear well healing without gross signs of infection. Full active range of motion and strength throughout. Sensation intact. Brisk cap refill. Left upper extremity:No tenderness to palpation or visible deformities. Full active range of motion and strength throughout. Sensation intact. Brisk cap refill. Right lower extremity: Mild tenderness palpation and swelling about the proximal lateral aspect of the tibia. Unable to assess hip and knee range of motion due to knee pain. Patient demonstrates positive EHL and FHL. Sensation intact. Brisk cap refill. Left lower extremity:No tenderness to palpation or visible deformities. Full active range of motion and strength throughout. Sensation intact. Brisk cap refill. No rash Normal affect Results - Labs Result Diagrams: 04/28/18 05:56 04/28/18 05:56 Labs: Laboratory Results - last 24 hr 04/28/18 04/28/18 04/28/18 05:56 05:56 15:25 WBC 7.0 RBC 3.62 L Hgb 11.7 Hct 35.0 MCV 96.6 MCH 32.4 MCHC 33.5 RDW 13.0 Plt Count 257 MPV 7.5 Neut % (Auto) 43.3 Lymph % (Auto) 36.8 [place] % (Auto) 13.9 H Eos % (Auto) 5.0 H Baso % (Auto) 1.0 Neut # (Auto) 3.0 Lymph # (Auto) 2.6 [place] # (Auto) 1.0 H Eos # (Auto) 0.3 Baso # (Auto) 0.1 WBC Differential . Differential Comment Auto diff final Sodium 140 Potassium 4.5 Chloride 105 Carbon Dioxide 27.2 Anion Gap 8 BUN 22 H Creatinine 0.91 Estimated GFR 60 L Random Glucose 91 Calcium 8.4 L Total Bilirubin 0.4 AST 21 ALT 27 Alkaline Phosphatase 113 Troponin I Less than 0.02 L Total Protein 6.5 Albumin 2.8 L - Diagnostic results Imaging: Impressions Knee X-Ray 04/27/18 00:00 CONCLUSION: Questionable nondisplaced lateral tibial plateau fracture. Mild to moderate osteoarthritis. Knee CT 04/28/18 00:00 CONCLUSION: 1. Lateral tibial plateau fracture. 2. Osteoarthritis. Assessment and Plan - Assessment and Plan 73yo F with closed right minimally displaced lateral tibial plateau fracture Radiographs and CT reviewed by myself and with the patient. Given the patient's fracture is minimally displaced, I would recommend at least initial attempt at non-operative management. Patient should remain NWB RLE in knee immobilizer. Should her fracture displace, she could require surgery. At this time, no plan for orthopedic intervention. I discussed with the patient I would recommend follow-up in approximately 2 weeks in my office.
--- NOTE | 2018-04-28 20:16 | MB ---
cc: Simone Nichols MD DATE: 04/28/2018 REASON FOR CONSULTATION: COPD, respiratory failure. HISTORY OF PRESENT ILLNESS: The patient is a 71-year-old female with a known history of COPD and chronic respiratory failure, on home oxygen therapy who had recently moved from [place]. The patient had fallen at home and had some pain on the right side of her chest. CT scan of the chest does not show any significant fracture or other abnormality; however, she does have a tibial fracture. The patient denies history of respiratory distress. No fever, no chills; however, she did have minor hemoptysis upon presentation. She described less than a teaspoon when she had such an episode years ago. She has been followed by a parts sales manager in [place]. PAST MEDICAL HISTORY: 1. COPD. 2. Chronic respiratory failure. 3. Coronary artery disease by myocardial infarction. 4. Acid reflux disease. 5. History of cerebrovascular accident. 6. Hypothyroidism, on replacement therapy. SOCIAL HISTORY: Previous hip replacement and hernia repair. FAMILY HISTORY: Noncontributory. REVIEW OF SYSTEMS: A 12-point review of systems as per HPI and past history, otherwise negative. MEDICATIONS UPON PRESENTATION: Included 1. Albuterol p.r.n. 2. Symbicort twice daily. 3. Citalopram. 4. Diclofenac. 5. Gabapentin. 6. Nebulized albuterol. 7. Ipratropium. 8. Levothyroxine. 9. Ketoconazole. 10. Omeprazole. 11. Spiriva. 12. Ursodiol. ALLERGIES: 1. KEFLEX. 2. ERYTHROMYCIN 3. MIDAZOLAM. 4. SULFA DRUGS. IMPRESSION: 1. Chronic obstructive pulmonary disease. 2. Chronic respiratory failure. 3. Tibial fracture. 4. History of cerebrovascular accident. 5. Coronary artery disease by history of myocardial infarction. PLAN: The patient is admitted to the hospital on oxygen therapy. Bronchodilators will be maintained. Orthopedic evaluation for tibial fracture as well will be obtained. We will follow her course along with you and depending on progress, proceed further. I do thank you for asking me to partake in Ms. Lujan's care. Simone Nichols MD WWW/stefania/efrain , 05:20 PM , 05:30 PM
[2018-04-29] MEDS: Morphine Sulfate Inj 2 MG/ML Vial IV.PUSH PRN ×3 (06:15→20:30)
[2018-04-29] MEDS: Lidocaine 5% Patch T-DERMAL SCH (10:23)
[2018-04-29] MEDS: Senna/Docusate Sodium 8.6/50 MG Tablet PO SCH ×2 (10:24→20:29)
--- NOTE | 2018-04-29 14:45 | P.PN ---
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 She is still extremely painful with any movement. Son is at bedside and reports that they would be unable to take care of her at home in this condition. Patient denies no new chest pain; all pain is associated with injured rib. No shortness of breath. No nausea vomiting or diarrhea. Physical Exam Vital signs: Vital Signs 04/28/18 16:00 04/28/18 19:20 04/28/18 20:00 Temperature 98.4 F Pulse Rate 82 79 86 Respiratory Rate 20 18 Blood Pressure 116/62 Pulse Oximetry 98 98 04/29/18 00:00 04/29/18 04:00 04/29/18 04:05 Temperature 99.1 F 98.4 F Pulse Rate 82 87 85 Respiratory Rate 16 16 Blood Pressure 95/59 L 110/66 Pulse Oximetry 96 92 L 04/29/18 07:13 04/29/18 08:00 04/29/18 12:00 Temperature 98.6 F 99.0 F Pulse Rate 79 81 85 Respiratory Rate 20 14 18 Blood Pressure 95/65 L 159/57 H Pulse Oximetry 92 L 92 L 96 Intake & Output 04/28/18 04/29/18 04/29/18 18:59 06:59 18:59 Intake Total 720 / 720 1480 / 1480 Output Total 200 / 200 Balance 520 / 520 1480 / 1480 Weight 78.5 kg Intake: IV 1000 / 1000 NS Inj 1,000 ML @ 42 mls/hr IV. 1000 / 1000 CONT .[id number] [facility] Rx#:[id number] Oral 720 / 720 480 / 480 Output: Emesis 200 / 200 Other: # Voids 2 3 Date of Last Bowel Movement 04/27/18 04/27/18 Narrative: GENERAL: Well-nourished, well-developed adult female. SKIN: Warm and dry. HEAD: Atraumatic. Normocephalic. CARDIOVASCULAR: Regular rate and rhythm. RESPIRATORY: No accessory muscle use. Clear to auscultation. Breath sounds equal bilaterally. GASTROINTESTINAL: Abdomen soft, non-tender, non-distended. Positive bowel sounds. MUSCULOSKELETAL: Exquisitely tender over left ribs below breast. Right leg in brace. Toes warm and well-perfused. NEUROLOGICAL: Awake and alert. No obvious cranial nerve deficits. Motor grossly within normal limits. Normal speech. PSYCHIATRIC: Appropriate mood and affect; insight and judgment good. Results - Labs CBC & Chem 7: 04/28/18 05:56 04/28/18 05:56 Laboratory Results - last 24 hr 04/28/18 15:25 Troponin I Less than 0.02 L Assessment and Plan - Plan Plan Acute problems: Intractable left sided rib pain, suspected muscle spasm No evidence of acute fracture on imaging -pain management with bowel regimen, Lidoderm patch, Flexeril as needed Episode of hemoptysis - pulmonary medicine consult placed overnight, will follow recs. Right knee proximal tibia fracture per report -x-rays of the right knee--questionable fracture of tibial plateau--obtain CT RLE for further evaluation, if # present, then will consult orth for further mx currently has a knee brace. NWB RLE for now. -PT eval/tx Recent pit bull dog bite this past Monday--dog apparently was up to date with vaccination according to patient's son. No evidence of infection. Patient has been on doxycycline 100 mg twice daily ( patient has penicillin allergy) [facility] same. ROSALIND on possible CKD No baseline labs for comparison Creatinine 1.06--->0.91. cont gentle hydration, monitor closely. -Avoid nephrotoxic agents Stable chronic conditions: Liver cirrhosis secondary to Fosamax use -Avoid hepatotoxic agents -Monitor COPD, mild wheezing noted on exam -Scheduled DuoNeb -Supplemental oxygen -Monitor respiratory status CAD, history of remote NC x 3 Patient has no cardiac complaints -cont patient's home medications once med rec completed History of CVA x2, remotely Patient denies any residual weakness DVT prophylaxis -Lovenox Discharge planning: Will need rehab
[2018-04-29] MEDS: Enoxaparin Inj 40 MG/0.4 ML Syringe SQ SCH (19:43)
--- NOTE | 2018-04-30 08:53 | P.PN ---
Subjective Interval history: Follow up for intractable pain. Seen and examined, left sided rib pain with deep breathing and movement, no sob, no cp. Right knee pain. No nausea, no vomiting. No fever. No acute changes overnight Physical Exam Vital signs: Vital Signs 04/29/18 12:00 04/29/18 15:27 04/29/18 20:00 Temperature 99.0 F 98.2 F 97.7 F Pulse Rate 85 85 78 Respiratory Rate 18 18 Blood Pressure 159/57 H 143/67 H 101/57 L Pulse Oximetry 96 92 L 96 04/29/18 23:38 04/30/18 00:00 04/30/18 04:00 Temperature 98.4 F 97.9 F Pulse Rate 85 82 73 Respiratory Rate 18 Blood Pressure 111/56 L 122/68 Pulse Oximetry 95 93 L 96 04/30/18 06:57 04/30/18 07:40 04/30/18 07:58 Temperature 97.7 F Pulse Rate 73 Respiratory Rate 18 18 16 Blood Pressure 105/68 Pulse Oximetry 95 Intake & Output 04/29/18 04/30/18 04/30/18 18:59 06:59 18:59 Intake Total 480 / 480 520 / 520 Output Total 200 / 200 350 / 350 Balance 280 / 280 170 / 170 Weight 158.9 kg Intake: Oral 480 / 480 520 / 520 Output: Urine 350 / 350 Emesis 200 / 200 Other: # Voids 3 Date of Last Bowel Movement 04/27/18 04/27/18 Narrative: GENERAL: Well-nourished, well-developed adult female. SKIN: Warm and dry. Puncture wounds right elbow, face. Healing well. Mild bruising right periorbital. HEAD: Atraumatic. Normocephalic. CARDIOVASCULAR: Regular rate and rhythm. RESPIRATORY: No accessory muscle use. Clear to auscultation. Breath sounds equal bilaterally. Poor inspiratory effort. GASTROINTESTINAL: Abdomen soft, non-tender, non-distended. Positive bowel sounds. MUSCULOSKELETAL: Exquisitely tender over left ribs below breast. Right leg in brace. Toes warm and well-perfused. Limited ROM right knee. NEUROLOGICAL: Awake and alert. No obvious cranial nerve deficits. Motor grossly within normal limits. Normal speech. PSYCHIATRIC: Appropriate mood and affect; insight and judgment good. Results - Labs CBC & Chem 7: 04/28/18 05:56 04/28/18 05:56 Assessment and Plan - Assessment (1) Intractable pain Code(s): R52 - Pain, unspecified Status: Acute (2) History of dog bite Code(s): Z78.9 - Other specified health status Status: Acute (3) COPD (chronic obstructive pulmonary disease) Code(s): J44.9 - Chronic obstructive pulmonary disease, unspecified Status: Chronic (4) Hemoptysis, unspecified Code(s): R04.2 - Hemoptysis Status: Acute (5) Fracture of right tibial plateau Code(s): S82.141A - Displaced bicondylar fracture of right tibia, initial encounter for closed fracture Status: Acute - Plan 73 y.o. pt. who was bitten by dog last Monday, twisted ankle and fell. Presented with intractable left sided rib pain. Intractable left sided rib pain, suspected muscle spasm No evidence of acute fracture on imaging -pain management with bowel regimen, Lidoderm patch, Flexeril as needed -IS q 2 -Splint and DB/C Episode of hemoptysis x1, minimal amount -pulm input appreciated -HH stable -continue to monitor, no further episodes Right knee proximal tibia fracture per report -x-rays of the right knee--questionable fracture of tibial plateau -CT right knee-lateral tib plat fx -appreciate ortho input, non operative management, NWBT right LE, brace. Will f/ u in 2 weeks to determine whether surgery will be needed -PT eval, recommends SNF -Pain management Recent pit bull dog bite this past Monday--dog apparently was up to date with vaccination according to patient's son. No evidence of infection. Patient has been on doxycycline 100 mg twice daily ( patient has penicillin allergy) [facility] same. -continue Doxycycline 100 mg po BID ROSALIND on possible CKD No baseline labs for comparison Creatinine 1.06--->0.91. cont gentle hydration, monitor closely. -Avoid nephrotoxic agents Liver cirrhosis secondary to Fosamax use -Avoid hepatotoxic agents -Monitor for now COPD, stable. O2 dependent at home -Scheduled DuoNeb -continue with oxygen -pulm following CAD, history of remote [place] x 3 Patient has no cardiac complaints History of CVA x2, remotely Patient denies any residual weakness DVT prophylaxis -Lovenox consult for placement, will need rehab Code Status: Full code Discussed Condition With: RN, pt, CM Discharge Planning: Needs rehab placement (3) COPD (chronic obstructive pulmonary disease) Qualifiers: COPD type: unspecified COPD Qualified Code(s): J44.9 - Chronic obstructive pulmonary disease, unspecified (5) Fracture of right tibial plateau Qualifiers: Encounter type: subsequent encounter Fracture type: closed Fracture healing : with routine healing Qualified Code(s): S82.141D - Displaced bicondylar fracture of right tibia, subsequent encounter for closed fracture with routine healing
[2018-04-30] MEDS: Lidocaine 5% Patch T-DERMAL SCH (10:23)
[2018-04-30] MEDS: Enoxaparin Inj 40 MG/0.4 ML Syringe SQ SCH (10:23)
[2018-04-30] MEDS: Senna/Docusate Sodium 8.6/50 MG Tablet PO SCH (10:24)
--- NOTE | 2018-04-30 16:16 | P.PN ---
Subjective Interval history: ALERT NO SOB AT REST PAIN LEFT RIBS WITH COUGH Physical Exam Vital signs: Vital Signs 04/29/18 20:00 04/29/18 23:38 04/30/18 00:00 Temperature 97.7 F 98.4 F Pulse Rate 78 85 82 Respiratory Rate 18 15 18 Blood Pressure 101/57 L 111/56 L Pulse Oximetry 96 95 93 L 04/30/18 04:00 04/30/18 06:57 04/30/18 07:35 Temperature 97.9 F Pulse Rate 73 75 Respiratory Rate 18 16 Blood Pressure 122/68 Pulse Oximetry 96 04/30/18 07:40 04/30/18 07:58 04/30/18 08:00 Temperature 97.7 F Pulse Rate 73 Respiratory Rate 18 16 Blood Pressure 105/68 Pulse Oximetry 95 97 04/30/18 12:00 04/30/18 13:47 04/30/18 15:40 Temperature 98.0 F 98.0 F Pulse Rate 82 79 88 Respiratory Rate 16 16 16 Blood Pressure 146/65 H 115/68 Pulse Oximetry 92 L 95 Intake & Output 04/29/18 04/30/18 04/30/18 18:59 06:59 18:59 Intake Total 480 / 480 520 / 520 Output Total 200 / 200 350 / 350 Balance 280 / 280 170 / 170 Weight 158.9 kg Intake: Oral 480 / 480 520 / 520 Output: Urine 350 / 350 Emesis 200 / 200 Other: # Voids 3 Date of Last Bowel Movement 04/27/18 04/27/18 Narrative: GENERAL: Well-nourished, well-developed adult female. SKIN: Warm and dry. Puncture wounds right elbow, face. Healing well. Mild bruising right periorbital. HEAD: Atraumatic. Normocephalic. CARDIOVASCULAR: Regular rate and rhythm. RESPIRATORY: No accessory muscle use. Clear to auscultation. Breath sounds equal bilaterally. Poor inspiratory effort. GASTROINTESTINAL: Abdomen soft, non-tender, non-distended. Positive bowel sounds. MUSCULOSKELETAL: Exquisitely tender over left ribs below breast. Right leg in brace. Toes warm and well-perfused. Limited ROM right knee. NEUROLOGICAL: Awake and alert. No obvious cranial nerve deficits. Motor grossly within normal limits. Normal speech. PSYCHIATRIC: Appropriate mood and affect; insight and judgment good. Results - Labs CBC & Chem 7: 04/28/18 05:56 04/28/18 05:56 Assessment and Plan - Plan COPD RESPIRATORY FAILRE, CHRONIC ON HOME O2 TIBIAL FRACTURE LEFT RIB CONTUSION/FX H/O CVA PLAN O2 NEEDED BRONCHODILATOR THERAPY INCREASE ACTIVITY
[2018-04-30] MEDS: Gabapentin 400 MG Capsule PO SCH ×2 (16:19→19:32)
[2018-04-30] MEDS: buPROPion 100 MG Tablet PO SCH (16:19)
[2018-04-30] MEDS: Budesonide-Formoterol 160/4.5 MCG 6 GM Inhaler INH SCH (17:24)
[2018-04-30] MEDS: Morphine Sulfate Inj 2 MG/ML Vial IV.PUSH PRN (19:32)
[2018-05-01] MEDS: Senna/Docusate Sodium 8.6/50 MG Tablet PO SCH ×2 (00:52→11:15)
[2018-05-01] MEDS: Budesonide-Formoterol 160/4.5 MCG 6 GM Inhaler INH SCH ×2 (01:03→11:17)
[2018-05-01 07:53] VITALS: TEMP 97.7
[2018-05-01] MEDS ORDERED: Pantoprazole Sodium 20 MG DR Tablet PO SCH (09:00)
[2018-05-01] MEDS ORDERED: Tiotropium Bromide 18 MCG/ACT Inhaler INH SCH (09:00)
--- NOTE | 2018-05-01 10:17 | P.PN ---
Subjective Interval history: Follow up for intractable pain. Seen and examined, left sided rib pain with deep breathing and movement, no sob, no cp. No acute changes overnight. Afebrile Physical Exam Vital signs: Vital Signs 04/30/18 12:00 04/30/18 13:47 04/30/18 15:40 Temperature 98.0 F 98.0 F Pulse Rate 82 79 88 Respiratory Rate 16 16 16 Blood Pressure 146/65 H 115/68 Pulse Oximetry 92 L 95 04/30/18 19:47 04/30/18 20:00 05/01/18 00:02 Temperature 98.6 F Pulse Rate 88 90 86 Respiratory Rate 16 18 Blood Pressure 121/68 Pulse Oximetry 95 05/01/18 06:09 05/01/18 07:50 05/01/18 07:57 Temperature 98.0 F 97.7 F Pulse Rate 73 73 76 Respiratory Rate 16 19 20 Blood Pressure 103/67 115/63 Pulse Oximetry 97 97 94 L Intake & Output 04/30/18 05/01/18 05/01/18 18:59 06:59 18:59 Intake Total 500 / 500 Balance 500 / 500 Intake: Oral 500 / 500 Narrative: GENERAL: Well-nourished, well-developed adult female. SKIN: Warm and dry. Puncture wounds right elbow, face. Healing well. Mild bruising right periorbital. HEAD: Atraumatic. Normocephalic. CARDIOVASCULAR: Regular rate and rhythm. RESPIRATORY: No accessory muscle use. Clear to auscultation. Breath sounds equal bilaterally. Poor inspiratory effort. GASTROINTESTINAL: Abdomen soft, non-tender, non-distended. Positive bowel sounds. MUSCULOSKELETAL: Exquisitely tender over left ribs below breast. Right leg in brace. Toes warm and well-perfused. Limited ROM right knee. NEUROLOGICAL: Awake and alert. No obvious cranial nerve deficits. Motor grossly within normal limits. Normal speech. PSYCHIATRIC: Appropriate mood and affect; insight and judgment good. Results - Labs CBC & Chem 7: 04/28/18 05:56 04/28/18 05:56 Assessment and Plan - Assessment (1) Intractable pain Code(s): R52 - Pain, unspecified Status: Acute (2) History of dog bite Code(s): Z78.9 - Other specified health status Status: Acute (3) COPD (chronic obstructive pulmonary disease) Code(s): J44.9 - Chronic obstructive pulmonary disease, unspecified Status: Chronic (4) Hemoptysis, unspecified Code(s): R04.2 - Hemoptysis Status: Acute (5) Fracture of right tibial plateau Code(s): S82.141A - Displaced bicondylar fracture of right tibia, initial encounter for closed fracture Status: Acute - Plan 73 y.o. pt. who was bitten by dog last Monday, twisted ankle and fell. Presented with intractable left sided rib pain. Intractable left sided rib pain, suspected muscle spasm No evidence of acute fracture on imaging -pain management with bowel regimen, Lidoderm patch, Flexeril as needed -IS q 2 -Splint and DB/C Episode of hemoptysis x1, minimal amount -pulm input appreciated -HH stable -continue to monitor, no further episodes Right knee proximal tibia fracture per report -x-rays of the right knee--questionable fracture of tibial plateau -CT right knee-lateral tib plat fx -appreciate ortho input, non operative management, NWBT right LE, brace. Will f/ u in 2 weeks to determine whether surgery will be needed -PT eval, recommends SNF -Pain management Recent pit bull dog bite this past Monday--dog apparently was up to date with vaccination according to patient's son. No evidence of infection. Patient has been on doxycycline 100 mg twice daily ( patient has penicillin allergy) [facility], [facility] same. -continue Doxycycline 100 mg po BID x 7 days ROSALIND on possible CKD No baseline labs for comparison Creatinine 1.06--->0.91. hydration given -Avoid nephrotoxic agents Liver cirrhosis secondary to Fosamax use -Avoid hepatotoxic agents -Monitor for now COPD, stable. O2 dependent at home -Scheduled DuoNeb -continue with oxygen -pulm following CAD, history of remote [place] x 3 Patient has no cardiac complaints History of CVA x2, remotely Patient denies any residual weakness DVT prophylaxis -Lovenox CM consult for placement, SNF pending Discharge when bed ready f/u Dr. Hinson in 2 week NWB RLE Code Status: Full code Discussed Condition With: RN, pt, CM Discharge Planning: Needs rehab placement [facility] Prescription Drug Monitoring Database has been queried and verified prior to prescribing the controlled substance. Acute pain exception. This patient has normal, predicted, physiological, and time limited response to an adverse mechanical stimulus associated with surgery, trauma, or acute illness as described in my notes. There is a lack of alternative treatment options other than to include the prescribed narcotic treatment for this condition. (3) COPD (chronic obstructive pulmonary disease) Qualifiers: COPD type: unspecified COPD Qualified Code(s): J44.9 - Chronic obstructive pulmonary disease, unspecified (5) Fracture of right tibial plateau Qualifiers: Encounter type: subsequent encounter Fracture type: closed Fracture healing : with routine healing Qualified Code(s): S82.141D - Displaced bicondylar fracture of right tibia, subsequent encounter for closed fracture with routine healing
[2018-05-01] MEDS: Enoxaparin Inj 40 MG/0.4 ML Syringe SQ SCH (11:09)
[2018-05-01] MEDS: Morphine Sulfate Inj 2 MG/ML Vial IV.PUSH PRN ×2 (11:09→16:54)
[2018-05-01] MEDS: Gabapentin 400 MG Capsule PO SCH ×3 (11:16→19:55)
[2018-05-01] MEDS: buPROPion 100 MG Tablet PO SCH (11:17)
[2018-05-01] MEDS: Lidocaine 5% Patch T-DERMAL SCH (11:17)
[2018-05-01 16:25] VITALS: BP 118/60; PULSE 87; RESP 18; O2SAT 97
--- NOTE | 2018-05-01 18:14 | P.DS ---
Date of admission: 04/27/18 17:06 Primary care physician: [facility] Attending physician on discharge: Meggan Christensen Anticipated date of discharge: 05/01/18 Brief History from admission: This is 73-year-old female with a past medical history significant for coronary artery disease status post [place] x3 in the remote past, history of CVA x2 in the remote past, COPD on supplemental oxygen at home, history of liver cirrhosis secondary to Fosamax use, hypothyroidism and GERD who was bit by her neighbors dog on Monday causing her to fall and twist on her right knee. [facility] and was started on doxycycline. X-ray of the right knee revealed a proximal tibia fracture. Patient was in the process of getting outpatient CT and orthopedic follow-up. Yesterday her son grabbed her around the chest to help move her in the bathroom when she felt a crunching followed by sharp pain over the left side of her rib cage just below her breast. Today she was going for the outpatient CT she pulled herself into the car and further injured her left side. Patient describes the pain is sharp stabbing spasm-like pain just below the left breast that is worse with movement and inspiration. She also had one episode of blood-tinged sputum with coughing while in the ED. Patient denies any fever or chills. She denies any anterior chest pain shortness of breath. She denies any nausea, vomiting or abdominal pain. Additionally she does complain of right knee pain and inability to bear weight on the right leg. In the ED, x-ray reveals healed left-sided rib fractures with no evidence of acute fracture. Follow-up chest CT is negative. DS: Diagnosis - Discharge Diagnosis (1) Intractable pain Status: Acute (2) History of dog bite Status: Acute (3) COPD (chronic obstructive pulmonary disease) Status: Chronic (4) Hemoptysis, unspecified Status: Acute (5) Fracture of right tibial plateau Status: Acute DS: Medications - Discharge Medications Prescriptions: hydrocodone-acetaminophen 1 tab PO Q6H PRN 3 Days #12 tab PRN Reason: Pain Scale 1 To 10 DS: Summary Hospital Course: This is 73-year-old female with a past medical history significant for coronary artery disease status post [place] x3 in the remote past, history of CVA x2 in the remote past, COPD on supplemental oxygen at home, history of liver cirrhosis secondary to Fosamax use, hypothyroidism and GERD who was bit by her neighbors dog on Monday causing her to fall and twist on her right knee. [facility] and was started on doxycycline. X-ray of the right knee revealed a proximal tibia fracture. Patient was in the process of getting outpatient CT and orthopedic follow-up. Day before admit, her son grabbed her around the chest to help move her in the bathroom when she felt a crunching followed by sharp pain over the left side of her rib cage just below her breast. The next day she was going for the outpatient CT she pulled herself into the car and further injured her left side. Patient described the pain is sharp stabbing spasm-like pain just below the left breast that is worse with movement and inspiration. She also had one episode of blood-tinged sputum with coughing while in the ED. Additionally did complain of right knee pain and inability to bear weight on the right leg. In the ED, x-ray reveals healed left -sided rib fractures with no evidence of acute fracture. Follow-up chest CT is negative. Pt. admitted, put on appropriate pain management including IV, PO narcotics with lidocaine patch. IS ordered. CT of right knee done, showed lateral tib plat fx. Ortho evaluated, non operative management, NWBT right LE, brace recommended and f/u in 2 weeks to determine whether surgery will be needed. PT was ordered. Pt. continued on doxycycline 100 mg twice daily ( patient has penicillin allergy) prescribed by the [facility]. Given IVF for ROSALIND, creat improved. CM consulted, pt. recommended SNF. Arrangements were made and pt. was discharged to SNF in stable condition. - Time Spent with Patient Total time spent providing and/or coordinating discharge services: 45 minutes Greater than 30 minutes - Quality: VTE Deep Vein Thrombosis/Pulmonary Embolism Present on Admission: No Exam Vital signs: Vital Signs 04/30/18 19:47 04/30/18 20:00 05/01/18 00:02 Temperature 98.6 F Pulse Rate 88 90 86 Respiratory Rate 16 18 Blood Pressure 121/68 Pulse Oximetry 95 05/01/18 06:09 05/01/18 07:50 05/01/18 07:57 Temperature 98.0 F 97.7 F Pulse Rate 73 73 76 Respiratory Rate 16 19 20 Blood Pressure 103/67 115/63 Pulse Oximetry 97 97 94 L 05/01/18 13:02 05/01/18 16:00 Temperature Pulse Rate 82 87 Respiratory Rate 24 18 Blood Pressure 118/60 Pulse Oximetry 97 Intake & Output 04/30/18 05/01/18 05/01/18 18:59 06:59 18:59 Intake Total 500 / 500 Balance 500 / 500 Intake: Oral 500 / 500 Results Procedures completed during hospitalization: none - Impressions ITS Impressions Knee X-Ray 04/27/18 00:00 CONCLUSION: Questionable nondisplaced lateral tibial plateau fracture. Mild to moderate osteoarthritis. Ribs X-Ray 04/27/18 13:52 CONCLUSION: 1. Healed left-sided rib fractures. 2. No acute displaced rib fracture or pneumothorax. Chest CT 04/27/18 15:19 CONCLUSION: Negative CT Chest non contrast. Knee CT 04/28/18 00:00 CONCLUSION: 1. Lateral tibial plateau fracture. 2. Osteoarthritis. Discharge Plan - Discharge Disposition Patient Disposition: Discharge to SNF - Discharge Condition Condition: Stable - Discharge Order Discharge Orders: Discharge Order (Routine); Ordered 05/01/18 Ordered By: Afia Krause - Discharge Details Anticipated Discharge Date: 05/01/18 - Physicians Team Primary Care Provider: [facility] Attending Provider: Meggan Christensne Other Providers: Alonso Navarrete MD ; Ritika Hinson MD ; [facility] [place]
== END 2018-05-01 18:57 ==
LOC: NEDA 13:26 → NEPE 13:26 → NEPGCP 18:15
PROVIDERS: ADMIT Family Medicine; ATTEND Family Medicine
DX: I25.2 Old myocardial infarction; I25.10 Atherosclerotic heart disease of native coronary artery without angina pectoris; Z99.81 Dependence on supplemental oxygen; K74.60 Unspecified cirrhosis of liver; J44.9 Chronic obstructive pulmonary disease, unspecified; Z79.82 Long term (current) use of aspirin; M19.90 Unspecified osteoarthritis, unspecified site; K21.9 Gastro-esophageal reflux disease without esophagitis; Z90.710 Acquired absence of both cervix and uterus; Z96.649 Presence of unspecified artificial hip joint; W54.0XXA Bitten by dog, initial encounter; R04.2 Hemoptysis; E03.9 Hypothyroidism, unspecified; Z87.891 Personal history of nicotine dependence; Z88.0 Allergy status to penicillin; K74.5 Biliary cirrhosis, unspecified; Z86.73 Personal history of transient ischemic attack (TIA), and cerebral infarction without residual deficits; M81.0 Age-related osteoporosis without current pathological fracture